=== PATIENT | male | born 1970 | race Caucasian/White ===

== ENCOUNTER 2019-06-08 11:28 | Emergency (ER) | payer OTHER ==
[2019-06-08 11:47] VITALS: BP 151/92; PULSE 95; TEMP 97.7; BMI 47.0
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
== END 2019-06-08 13:56 | disposition home or self-care (01) ==
LOC: JERFT 11:28
DX: Z77.21 Contact with and (suspected) exposure to potentially hazardous body fluids (principal); X58.XXXA Exposure to other specified factors, initial encounter; Y93.89 Activity, other specified; Y92.410 Unspecified street and highway as the place of occurrence of the external cause; Y99.0 Civilian activity done for income or pay
CPT/HCPCS: 99282-25

== ENCOUNTER 2020-04-11 19:04 | Emergency (ER) | payer OTHER ==
[2020-04-11 19:36] VITALS: BP 122/82; PULSE 118; TEMP 98.8; BMI 47.0
[2020-04-11] MEDS ORDERED: IBUPROFEN 400 MG TABLET (FP) PO ONE ×2 (19:50→20:11)
== END 2020-04-11 20:15 | disposition home or self-care (01) ==
LOC: SUPCPDRO 19:04 → FER 19:04
DX: S83.411A Sprain of medial collateral ligament of right knee, initial encounter (principal)
CPT/HCPCS: 73562-TC-RT-FY; 99283-25